=== PATIENT | female | born 1985 | race Caucasian/White ===

== ENCOUNTER 2017-01-17 16:21 | Emergency (ER) | payer OTHER ==
[2017-01-17 16:36] VITALS: BP 122/78
[2017-01-17] MEDS: KETOROLAC TROMETHAMINE 60 MG/2 ML VIAL IM ONE (17:00)
--- NOTE | 2017-01-17 18:29 | Diagnostic Imaging Report ---
АЛЕКСАНДР MAURER (DEE) - ER~ [facility] [address] [address] ~ ~ ~ ~ Report Submission Date: Jan 17, 2017 4:52:52 PM CDT Patient ~ Study Name: FIONA FELIX ~ Date: Jan 17, 2017 4:34:27 PM CDT ~ Modality Type: CR Gender: F ~ Description: LOWER EXTREMITY : 85 ~ Institution: [facility] Physician: АЛЕКСАНДР MAURER) - ER ~ ~ ~ ~ Examination: Plain film foot ~ History:~Discomfort Findings: 3 views of the foot demonstrates normal cortical margins. No fracture or dislocation. ~Calcaneal spurs. No soft tissue swelling. No joint effusion. Impression: Early degenerative changes. No fracture. ~ Electronically signed on Jan 17, 2017 4:52:52 PM CDT by: Saran YADAV
--- NOTE | 2017-02-17 23:20 | ED Physician Documentation ---
General Adult - HISTORIAN Historian: patient - HPI Stated Complaint: Right foot pain Chief Complaint: General Adult Onset: days ago Timing: worse Further Comments: yes (31 year old female patient presents with c/o pain to the top of her right foot x 1 week; rates pain 5/10; increases to 9/10 with ambulation. Pt denies trauma or injury. Used heat and ice without relief. 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 denies: headache, difficulty with speech, anxiety, depression - PAST HX Past History: other (depression, anxiety) Other History: none Allergies/Adverse Reactions: Allergies Allergy/AdvReac Type Severity Reaction Status Date / Time No Known Allergies Allergy Verified 01/17/17 16:36 Home Medications: Ambulatory Orders Medication Instructions Recorded Alprazolam [Xanax] 0.5 mg PO Q4 PRN 01/17/17 Venlafaxine HCl [Effexor Xr] 150 mg PO [id number] 01/17/17 - SOCIAL HX Smoking History: cigarettes - FAMILY HX Family History: No - VITAL SIGNS Vital Signs: Vital Signs Temp Pulse Resp BP Pulse Ox 98.8 F 86 18 122/78 98 01/17/17 17:17 01/17/17 17:17 01/17/17 17:17 01/17/17 17:17 01/17/17 17:17 - REVIEWED ASSESSMENTS Nursing Assessment Reviewed: Yes Vitals Reviewed: Yes ED Results Lab/Radiology - Radiology Radiology Impressions: Examination: Plain film foot History: Discomfort Findings: 3 views of the foot demonstrates normal cortical margins. No fracture or dislocation. Calcaneal spurs. No soft tissue swelling. No joint effusion. Impression: Early degenerative changes. No fracture. Electronically signed on Jan 17, 2017 4:52:52 PM CDT by: Saran Dominique - Orders Orders: ED Orders Category Date Time Status FOOT 3 VIEWS OR MORE [RAD] Stat Exams 01/17/17 Completed Ketorolac Tromethamine [Toradol] Med 01/17/17 16:32 Discontinued 60 mg IM NOW ONE General Adult Physical Exam - PHYSICAL EXAM GENERAL APPEARANCE: [id number] N EENT: eye inspection normal, CESAR RESPIRATORY: no resp distress CVS: reg rate & rhythm SKIN: normal color, warm/dry, NR, INT, PAL, DR EXTREMITIES: non-tender, normal range of motion, no evidence of injury, no edema , J, CORRESPONDENCE REPRESENTATIVE NEURO: oriented X3, CN's nml as tested, motor nml, sensation nml, mood/affect nml Discharge Clincal Impression: Right foot sprain Qualifiers: Encounter type: initial encounter Qualified Code(s): S93.601A - Unspecified sprain of right foot, initial encounter Referrals: ZOILA PRICE [NURSE PRACTITIONER] - 2 Days Condition: Stable Disposition: 01 HOME, SELF-CARE Decision to Admit: NO Decision Time: 17:10
== END 2017-01-17 17:17 | disposition home or self-care (01) ==
LOC: ED 16:21
DX: S93.601A Unspecified sprain of right foot, initial encounter (principal); X58.XXXA Exposure to other specified factors, initial encounter; Y93.9 Activity, unspecified; Y99.9 Unspecified external cause status
CPT/HCPCS: 73630; J1885; 96372; 99283

== ENCOUNTER 2018-08-16 16:54 | Outpatient (CLI) | payer OTHER ==
--- NOTE | 2018-08-17 05:31 | Diagnostic Imaging Report ---
OSITO URIAS [facility] [id number] [facility] [address] [address] Report Submission Date: Aug 16, 2018 6:52:25 PM CDT Patient Study Name: FIONA FELIX Date: Aug 16, 2018 4:57:28 PM CDT Modality Type: DX Gender: F Description: ANKLE 3 VIEWS OR MORE : 85 Institution: [facility] Physician: OSITO URIAS HISTORY: 32-year-old female with left ankle pain, left heel pain for 1 year, no known injury. COMPARISON: None available. TECHNIQUE: 3 views of the left ankle were performed. FINDINGS: No acute fracture or dislocation about the left ankle. The mortise is intact. Plantar calcaneal bone spur and Achilles insertion enthesophyte are present. No significant degenerative changes. IMPRESSION: 1. No acute fracture of the left ankle. 2. Plantar calcaneal bone spur and Achilles insertion enthesophyte. Electronically signed on Aug 16, 2018 6:52:25 PM CDT by: Harmeet YADAV
== END 2018-08-16 16:56 ==
LOC: RAD 16:54
PROVIDERS: ATTEND Podiatrist Foot & Ankle Surgery
DX: M77.32 Calcaneal spur, left foot (principal); M76.62 Achilles tendinitis, left leg; M79.672 Pain in left foot; M92.62 Juvenile osteochondrosis of tarsus, left ankle
CPT/HCPCS: 73610